=== PATIENT | male | born 1970 | race Two or more races ===

== ENCOUNTER 2018-02-20 10:00 | Emergency (ER) | payer SELFPAY ==
--- NOTE | 2018-02-20 10:08 | EDM.PDOC ---
ED HPI GENERAL MEDICAL PROBLEM - General Chief Complaint: ENT Problem Stated Complaint: TOOTHACHE Time Seen by Provider: 02/20/18 10:03 Source of Information: Reports: Patient History Limitations: Reports: No Limitations - History of Present Illness INITIAL COMMENTS - FREE TEXT/NARRATIVE: HISTORY AND PHYSICAL: History of present illness: Patient is a 47-year-old male who presents to the emergency room with complaints of right upper dental pain 2 days. He states he has had "throbbing pain" that has not been relieved with Tylenol and ibuprofen [id number]. He reports his insurance "kicks in" in 1 month and he will follow-up with the dentist at that time. He denies any fever, chills, chest pain or shortness of breath. Denies any GI or symptoms. No other complaints at this time. Review of systems: As per history of present illness and below otherwise all systems reviewed and negative. Past medical history: As per history of present illness and as reviewed below otherwise noncontributory. Surgical history: As per history of present illness and as reviewed below otherwise noncontributory. Social history: No reported history of drug or alcohol abuse. Family history: As per history of present illness and as reviewed below otherwise noncontributory. Physical exam: General: Well-developed and well-nourished 47-year-old male. Alert and oriented. Nontoxic appearing and in no acute distress. HEENT: Atraumatic, normocephalic, pupils equal and reactive bilaterally, negative for conjunctival pallor or scleral icterus, mucous membranes moist, I' ll do erythema noted to the right upper posterior gumline, throat clear, neck supple, nontender, trachea midline. No drooling or trismus noted. No meningeal signs Lungs: Clear to auscultation, breath sounds equal bilaterally, chest nontender. Heart: S1S2, regular rate and rhythm without overt murmur Abdomen: Soft, nondistended, nontender. Negative for masses or hepatosplenomegaly. Negative for costovertebral tenderness. Pelvis: Stable nontender. Genitourinary: Deferred. Rectal: Deferred. Skin: Intact, warm, dry. No lesions or rashes noted. Extremities: Atraumatic, negative for cords or calf pain. Neurovascular unremarkable. Neuro: Awake, alert, oriented. Cranial nerves II through XII unremarkable. Cerebellum unremarkable. Motor and sensory unremarkable throughout. Exam nonfocal. Notes: We discussed the importance of follow-up with dental care. We'll provide him with a list of local dentist for further management. Dental balls will be given here. Clindamycin TID x 10 days. Tramadol 50mg PRN ( #10, NRF). Diagnostics: [] Therapeutics: [] Impression: Dental abscess Plan: 1. Please take your antibiotic as prescribed. 2. Tylenol and/or ibuprofen as needed for pain management. You may use the dental balls as needed topically. 3. Follow-up with your dentist next week. Return to the ED as needed and as discussed. Definitive disposition and diagnosis as appropriate pending reevaluation and review of above. Duration: Day(s): Location: Reports: Face right dental Pain Score (Numeric/FACES): 8 - Related Data Allergies Allergy/AdvReac Type Severity Reaction Status Date / Time No Known Allergies Allergy Verified 02/20/18 10:02 Home Meds: Home Meds . [No Known Home Meds] 02/20/18 [History] ED ROS ENT - Review of Systems Review Of Systems: ROS reveals no pertinent complaints other than HPI. ED EXAM, ENT - Physical Exam Exam: See Below (See dictation) Course - Vital Signs Last Recorded V/S: Last Vital Signs Temp 96.5 F 02/20/18 10:03 Pulse 75 02/20/18 10:03 Resp 18 02/20/18 10:03 BP 135/89 02/20/18 10:03 Pulse Ox 98 02/20/18 10:03 - Orders/Labs/Meds Meds: Medications Discontinued Medications Generic Name Dose Route Start Last Admin Trade Name Freq PRN Reason Stop Dose Admin Benzocaine 1 each 02/20/18 10:09 02/20/18 10:16 Hurricaine One 20% MUCMEM 02/20/18 10:10 1 each ONETIME ONE Administration Lidocaine HCl 15 ml 02/20/18 10:09 02/20/18 10:16 Xylocaine 2% Viscous PO 02/20/18 10:10 15 ml ONETIME ONE Administration Departure - Departure Time of Disposition: 10:17 Disposition: Home, Self-Care 01 Clinical Impression: Dental abscess - Discharge Information Instructions: Dental Abscess, [id number] Referrals: PCP,None [Primary Care Provider] - Forms: ED Department Discharge Additional Instructions: The following information is given to patients seen in the emergency department who are being discharged to home. This information is to outline your options for follow-up care. We provide all patients seen in our emergency department with a follow-up referral. The need for follow-up, as well as the timing and circumstances, are variable depending upon the specifics of your emergency department visit. If you don't have a primary care physician on staff, we will provide you with a referral. We always advise you to contact your personal physician following an emergency department visit to inform them of the circumstance of the visit and for follow-up with them and/or the need for any referrals to a consulting specialist. The emergency department will also refer you to a specialist when appropriate. This referral assures that you have the opportunity for follow-up care with a specialist. All of these measure are taken in an effort to provide you with optimal care, which includes your follow-up. Under all circumstances we always encourage you to contact your private physician who remains a resource for coordinating your care. When calling for follow-up care, please make the office aware that this follow-up is from your recent emergency room visit. If for any reason you are refused follow-up, please contact the [facility] Emergency Department at and asked to speak to the emergency department charge nurse. [facility] [address] [place] [id number] 1. Please take your antibiotic as prescribed. 2. Tylenol and/or ibuprofen as needed for pain management. You may use the dental balls as needed topically. 3. Follow-up with your dentist next week. Return to the ED as needed and as discussed.
[2018-02-20] MEDS ORDERED: Benzocaine 20% Topical Spray UD MUCMEM ONE (10:09)
[2018-02-20] MEDS ORDERED: Lidocaine 2% Viscous Solution 15 ML Cup PO ONE (10:09)
== END 2018-02-20 10:37 | disposition home or self-care (01) ==
LOC: MW.ED 10:00
DX: K04.7 Periapical abscess without sinus (principal)
CPT/HCPCS: 99282; A9270